=== PATIENT | male | born 1985 | race Caucasian/White ===

== ENCOUNTER 2024-09-02 12:23 | Day surgery (SDC) | payer OTHER, SELFPAY ==
--- NOTE | 2024-09-02 | PATH_ITS ---
[facility] Accession Number: [id number] No. of containers..03 Tissue . 01 Material submitted: . PART A: duodenum - DUODENUM PART B: stomach - ANTRUM PART C: colon - RANDOM COLON . 01 Diagnosis: Part A: DUODENUM: Duodenal mucosa with no diagnostic alterations. No active inflammation and no evidence of celiac disease. . Part B: ANTRUM: Gastric antral mucosa with no diagnostic alterations. No Helicobacter organisms identified on H/E stain. No intestinal metaplasia, dysplasia, or malignancy identified. . Part C: RANDOM COLON: Colonic mucosa with no diagnostic alterations. No active inflammation, granulomas, dysplasia, or malignancy identified. No evidence of colitis. [facility] 09/04/2024 1558 Local . 01 Electronically signed: . Shabbir John MD, Pathologist NPI- [id number] . 01 Gross description: . Part A: DUODENUM: Received in formalin are 4 fragment(s) of horton, soft tissue measuring 0.1 x 0.1 x 0.1 cm to 0.3 x 0.2 x 0.2 cm submitted entirely in 1 cassette(s) . Part B: ANTRUM: Received in formalin are 2 fragment(s) of horton, soft tissue measuring 0.1 x 0.1 x 0.1 cm to 0.3 x 0.3 x 0.2 cm submitted entirely in 1 cassette(s) . Part C: RANDOM COLON: Received in formalin are 2 fragment(s) of horton, soft tissue measuring 0.1 x 0.1 x 0.1 cm to 0.2 x 0.2 x 0.2 cm submitted entirely in 1 cassette(s) /[facility] 09/04/2024 1558 Local . 01 Pathologist provided ICD-10: K21.9, K62.5, R19.4 . 01 CPT . 365113, 835947, 884894 Specimen Comment: A courtesy copy of this report has been sent to [phone] Performed at: [address] [id number] MD Shabbir John MD Phone: [phone]
[2024-09-02] MEDS: LACTATED RINGERS 1,000 ML 42 ML IV (12:51)
[2024-09-02 12:55] VITALS: BMI 31.0
--- NOTE | 2024-09-02 13:12 | PM.HP.1 ---
History of Present Illness History of Present Illness Date Patient Seen: 09/02/24 Time Patient Seen: 13:12 Chief complaint: EGD & Colonoscopy Narrative: 39-year-old male with longstanding GERD symptoms and altered bowel habits with intermittent diarrhea. He had mucus per rectum. There is a family history of colon polyps in his brother. No family history of colon cancer. EGD and colonoscopy were requested. [facility] Social History household members: spouse Smoking Status: Former smoker alcohol intake: current Meds Home Medications and Allergies Home Medications Medication Instructions Recorded Confirmed Type fluticasone propionate 50 50 mcg intranasal DAILY 09/02/24 09/02/24 History mcg/actuation nasal spray,suspension lisinopril 20 mg tablet 20 mg PO DAILY 09/02/24 09/02/24 History loratadine 10 mg tablet 10 mg PO DAILY 09/02/24 09/02/24 History omeprazole 20 mg capsule,delayed 20 mg PO DAILY 09/02/24 09/02/24 History release Allergies Allergy/AdvReac Type Severity Reaction Status Date / Time No Known Drug Allergies Allergy Verified 09/02/24 12:52 Review of Systems Review of Systems ROS: Yes All systems reviewed with the patient and are negative except as otherwise documented Exam Const General: cooperative HENMT Head: normal to inspection Eyes General: appearance normal, both eyes and all related structures Neck Neck: normal visual inspection Chest Chest: normal inspection of the chest Resp Effort & Inspection: normal respiratory effort Cardio Rate: regular rate GI Inspection: normal to inspection Skin General: no rashes or lesions noted Neuro General: patient alert and patient awake Extrem General: normal to inspection and no pedal edema Psych Appearance: grossly normal Assessment & Plan Assessment & Plan narrative: 39-year-old male with longstanding GERD and altered bowel habit with diarrhea mucus per rectum. There is a family history of colon polyps. Diagnostic EGD and colonoscopy are pursued today. Time-Based Coding :: [TOTAL MINUTES] spent with patient and on the chart (including review of chart, obtaining history, exam, reviewing outside data, placing orders, documenting exam and treatment plan, and counseling patient) on [DATE].
--- NOTE | 2024-09-02 13:13 | PM.PREOP ---
Pre-operative Note Interval Note History & Physical reviewed/Exam performed by Physician: Yes Changes to H&P: No ASA Class (for procedural sedation): II
--- NOTE | 2024-09-02 14:20 | PM.OP.EC ---
Operative Date/Time/Diagnoses Date of procedure: 09/02/24 Time of procedure: 14:21 Pre-op diagnosis: Refractory GERD, altered bowel habit with diarrhea and mucus per rectum, constipation, diarrhea, family history of colon polyps Post-op diagnosis: same Procedure & Clinicians Study performed: EGD with biopsies and a colonoscopy with biopsies Same procedure as scheduled: Yes Indications: Refractory GERD, altered bowel habit with diarrhea and mucus per rectum, constipation, diarrhea, family history of colon polyps Surgeon: Neil Salinas Procedure Notes SCOAP/Timeout: Done Procedure in detail: After the risks and benefits were explained, written and verbal informed consent was obtained. The patient was brought into the procedure room and placed into the left lateral decubitus position. Please see anesthesia notes for sedation details. The scope was introduced into the mouth through the bite block and advanced under direct visualization to the 2nd portion of the duodenum. The scope was slowly withdrawn carefully examining the mucosa for any defects or lesions. Retroflexed views were accomplished in the stomach. The stomach was decompressed, the scope was then removed from the patient who tolerated the procedure well. The patient was then turned around. A digital rectal examination was accomplished. The scope was introduced into the rectum and advanced to the cecum as identified by the appendiceal orifice and ileocecal valve. The terminal ileum was interrogated. The scope was then slowly withdrawn to carefully examine the colon for any defects or lesions. Multiple direct views were made through the dentate line for exclusion of pathology. The colon was decompressed. The scope was then removed from the patient who tolerated the procedure well. Pediatric colonoscope Bowel prep adequate Scope withdrawal time: 9 minutes Sedation minutes: 27 Complications: none Impression: 1. Duodenum: No pathology identified from the bulb through to the 2nd portion. Biopsies were taken from D2 for exclusion of celiac. 2. Stomach: Patient had a mild nonspecific gastropathy characterized by antral erythema. No ulcers. No erosions. No outlet obstruction or masses. Antral biopsies were taken for exclusion of H pylori or other pathology. Retroflexed views of the LES were rather unremarkable. 3. Esophagus: The squamocolumnar junction generally correlated with the top of the gastric folds. The GEJ was at about 39 cm from the incisors. There was a subtle sliding small hiatal hernia and the LES seemed rather patulous. The patient had evidence of LA grade B erosive esophagitis. No endoscopic suggestion of Barretts. The remainder of the esophagus was fairly unremarkable with the exception of benign-appearing inlet patch just below the UES. 4. Terminal ileum: This was visually normal. 5. Colon: No evidence of proctitis nor colitis throughout. No significant polyps or mass lesions. Random colon biopsies were taken for exclusion of microscopic colitis. Endoscopic diagnosis 1. LA grade B erosive esophagitis 2. Subtle sliding hiatal hernia 3. Mild gastropathy 4. Visually normal colonoscopy and terminal ileoscopy Post-procedure Plan for aftercare: 1. Await histology. 2. Compliance with omeprazole is emphasized. This needs to be taken about 30-60 minutes before the 1st meal of the day on an empty stomach. Should symptoms of breakthrough reflux persist despite this approach, a trial of twice daily therapy would be appropriate. In that scenario the 2nd dose should be taken about 30-60 minutes before the evening meal. After symptoms of reflux have completely subsided, ideally year able to taper back down to a once daily dose. 3. Initiate an gnmp-ugn-nxxtcle fiber supplement such as Citrucel or Metamucil. Titrate the fiber dose to the desired stool consistency and frequency. 4. Follow up GI clinic with Ad Porter. 5. Repeat colonoscopy for screening in 5 to 10 years considering family history. Disposition: PACU
[2024-09-02 14:23] VITALS: BP 112/57; PULSE 99; RESP 13; TEMP 36.1; O2SAT 93
[2024-09-02 14:30] VITALS: BP 96/54; PULSE 89; RESP 16; O2SAT 97
[2024-09-02 14:36] VITALS: BP 110/70; PULSE 87; RESP 13; O2SAT 98
[2024-09-02 14:40] VITALS: BP 91/64; PULSE 82; RESP 13; O2SAT 99
[2024-09-02 14:49] VITALS: BP 104/72; PULSE 81; RESP 13; O2SAT 100
== END 2024-09-02 14:53 | disposition home or self-care (01) ==
PROVIDERS: PCP General Practice; Referring Provider Internal Medicine Gastroenterology; Visit Provider Internal Medicine Gastroenterology
PROC: 0DJD8ZZ Inspection of Lower Intestinal Tract, Via Natural or Artificial Opening Endoscopic (ICD-10-PCS; CPT 45378; principal; 2024-09-02 13:30)
PROC: 0DJ08ZZ Inspection of Upper Intestinal Tract, Via Natural or Artificial Opening Endoscopic (ICD-10-PCS; CPT 45380; 2024-09-02 13:30)
DX: R19.7 Diarrhea, unspecified (principal); K21.00 Gastro-esophageal reflux disease with esophagitis, without bleeding; K59.00 Constipation, unspecified; Z83.719 Family history of colon polyps, unspecified; K31.9 Disease of stomach and duodenum, unspecified; K44.9 Diaphragmatic hernia without obstruction or gangrene
CPT/HCPCS: 45380; 43239; J2704; J3010